=== PATIENT | female | born 1995 | race Hispanic/Latino ===

== ENCOUNTER 2016-07-09 02:08 | Emergency (ER) | payer OTHER ==
[~2016-07-09] VITALS: Ht 157.5 cm; Wt 68.2 kg
[~2016-07-09 02:08] MED LIST: HYDR25CA PO; IBUP800T28 PO; PREN-107 PO
[2016-07-09 02:10] VITALS: BP 154/100; PULSE 104; RESP 18; O2SAT 100
--- NOTE | 2016-07-09 02:24 | ED.REPORT ---
HPI-General Illness Date of Service Jul 09, 2016 ED Provider: Will Gambino MD Patient is a 20 year old female who is 3 months with a history of anxiety who presents to the ED complaining of substernal chest pain with bilateral arm tingling that began 1 hour prior to arrival, after experiencing anxiety all day today. Her tingling started in her left arm and then progressed to her right as well. Patient states that she has previously had chest pain with anxiety, but never the pain and tingling in her arms. The patient reports that her heart was also racing and that she had difficulty catching her breath. She states that her heart is not racing on arrival to the ED. The patient is unsure of what is causing her anxiety but she has a at home and is 3 months . Patient has presented to the ED due to palpitations in the past, with no acute finding on previous EKG. Patient has also seen her PCP for evaluation, stating that she was started on a medication that worsened her symptoms. She is meant to try a new medication soon. Patient admits to nausea and decreased appetite but denies a cough, vomiting, increased swelling in her legs, pain in her legs, or a history of blood clots. Nursing Notes Stated Complaint: CHEST PAIN Chief Complaint: Chest Pain-Non Cardiac Nature Nursing Notes Reviewed: Yes Allergies: Coded Allergies: Penicillins (Verified Allergy, Mild, rash, 07/09/16) Scheduled Vit37/Iron/Folic Acid (Prenata Chewable Tablet) 1 Each Tab.chew 1 EACH PO DAILY Scheduled PRN Hydroxyzine Pamoate (Vistaril) 25 Mg Capsule 25-50 MG PO HS PRN PRN For Anxiety Ibuprofen (Ibuprofen) 800 Mg Tablet 800 MG PO Q6H PRN PRN For Pain General Time Seen by MD: 02:24 Chief Complaint Other (anxiety and chest pain) Hx Obtained From: Patient Arrived By: Walk-in Sudden in Onset?: No Onset Occurred: 1 - 4 hours ago (anxiety all day, chest pain 1 hour [employer]) Symptom Duration: Since onset Location: : Chest Quality: Painful Severity: Current: Moderate Severity: Maximum: Moderate Recent Healthcare: No recent doctor visit, No recent hospitalization Similar Sx Previous: Yes Past Medical History Past Medical History Anxiety 3 months , Past Surgical History none Smoking History Never Smoker Social History Other Social History: Good social support, Lives with children, Local resident Ambulatory Status Independent Review of Systems + decreased appetite Full Review of Systems Respiratory: Reports: Shortness of breath, Denies: Non-productive cough Cardiovascular: Reports: Chest pain, Palpitations GI: Reports: Nausea, Denies: Vomiting Musculoskeletal: Denies: Extremity pain, Extremity swelling Neurologic: Reports: Numbness (tingling), Denies: Weakness Psychiatric: Reports: Anxiety Complete sys rev & neg: except as marked. Physical Exam Vital Signs Vital Signs Date Time Temp Pulse Resp B/P Pulse Ox O2 Delivery O2 Flow Rate FiO2 07/09/16 04:08 88 1 132/7 98 Room Air 07/09/16 03:12 88 16 99 07/09/16 02:10 36.7 104 18 154/100 100 Room Air Initial VS: Reviewed Head / Eyes: Atraumatic, Normocephalic, PERRL ENT: Conjunctiva normal, No scleral icterus Neck: Supple, Full range of motion Extremities: Vascular intact, Neuro intact Skin: Warm, Dry, No cyanosis Neurologic: Alert, Oriented, Nonfocal General/Constitutional: Awake, Alert Behavior: Positive: Anxious Respiratory / Chest: Breath sounds NL, Breath sounds = bilat, No respiratory distress, No rales, No rhonchi, No wheezing, No chest tenderness Cardiovascular: Regular rhythm, Heart sounds NL, No murmurs Heart Rate / Rhythm: Positive: Tachycardia Psychiatric: Cognitive function NL, Judgment/insight NL, Thought content NL Abnormal Mood/Affect: Positive: Anxious Interpretation & Diagnostics Lab Results Interpretation Result Diagram: 07/09/165 07/09/16 0315 Test 07/09/16 03:15 White Blood Count 9.5th/mm3 (3.8-10.1) Red Blood Count 4.81mil/mm3 (3.90-5.20) Hemoglobin 13.9g/dL (12.0-15.6) Hematocrit 41.4% (35.0-46.0) Mean Corpuscular Volume 86.1fL (81-100) Mean Corpuscular Hemoglobin 28.9pg (27.0-35.0) Mean Corpuscular Hemoglobin Concent 33.6% (32.0-37.0) Red Cell Distribution Width 12.4% (12.3-15.4) Platelet Count 294bil/L (150-400) Neutrophils (%) (Auto) 69.9% (40-74) Lymphocytes (%) (Auto) 21.0% (14-46) Monocytes (%) (Auto) 8.4% (4-12) Eosinophils (%) (Auto) 0.4% (0-5) Basophils (%) (Auto) 0.2% (0-3) Prothrombin Time 10.0sec (8.1-12.5) Prothromb Time International Ratio 0.94ratio Activated Partial Thromboplast Time 26.7sec (22.8-33.0) D-Dimer < 0.5mg/L (<0.50) Hold Urine Received (Received) Sodium Level 143mEq/L (134-144) Potassium Level 3.6mEq/L (3.5-5.2) Chloride Level 105mEq/L (97-108) Carbon Dioxide Level 23mmol/L (18-29) Blood Urea Nitrogen 9mg/dL (6-20) Creatinine 0.68mg/dL (0.57-1.00) Estimat Glomerular Filtration Rate 158mL/min (>59) Glucose Level 151mg/dL (60-99) Calcium Level 9.7mg/dL (8.5-10.1) Total Bilirubin 0.2mg/dL (0.0-1.2) Aspartate Amino Transf (AST/SGOT) 23U/L (0-50) Alanine Aminotransferase (ALT/SGPT) 28U/L (0-32) Alkaline Phosphatase 105U/L (25-150) Total Protein 7.9g/dL (6.4-8.4) Albumin 4.6g/dL (3.4-5.0) ECG Interpretation ECG Interpretation: Sinus rhythm, Rate 89 Nonspecific T abnormalities, Juvenile pattern Time: 02:30 Interpreted by: ED physician Normal ECG Interpretation: No change from prior ECGs (10/24/2015) Re-Eval/Medical Decision Med Decision/Clinical Course 4-year-old female three months presents with recurrent anxiety hyperventilation and chest pain. Her exam is unremarkable. Her monitor over the course of her stay here is negative for anything but sinus tachycardia sinus rhythm. Long discussion with her about depression, depression as the underlying cause of most chronic anxiety, and the need to seek treatment with her PCP. No indication for sedation at this time. She is discharged in stable condition. Source of Hx: Old records Time of Eval: 02:37 Patient Status: Condition improved Re-Evaluation/Progress Note: Discussed the patient's symptoms. Her anxiety sounds like it is consistent with depression. She was encouraged to follow-up with her doctor for depression. Will check a D-dimer prior to discharge to rule out acute process. If this is negative, she can be discharged home. Time of Eval: 03:55 Patient Status: Condition improved Re-Evaluation/Progress Note: Labs were negative, discussed diagnoses. She feels improved. Patient understands and agrees with the plan to be discharged home. Discharge instructions and follow-up discussed. All questions were addressed. Return to the ED warnings given. Counseled Regarding: Diagnosis, Lab results, Need for follow-up, When/why to return to ED Discharge & Departure Primary Impression: Anxiety Additional Impressions: Hyperventilating depression Non-cardiac chest pain Disposition: Home Discharge Condition All VS Reviewed: Yes Condition: Stable Patient Instructions: Generalized Anxiety Disorder (ED), Depression (ED) Additional Instructions: Your heart and lungs are fine. There is no evidence of significant or dangerous pathology. It is possible that you have a regular tachycardia such as PSVT. All of the beats we recorded here are normal in origin. Follow-up with your doctor in the office. If you continue to have palpitations , your doctor can arrange a Holter exam to evaluate it further. However, I think your problem is primarily depression related to your recent childbirth. This can produce generalized anxiety when the depression remains untreated. The most important thing to understand, is that sedation for the anxiety only makes matters worse. The most important thing to treat is the underlying depression. Referrals: Rosemary Nielsen MD (PCP) Inés Attestation Portions of this note were transcribed by Alyssa Baird. I, Dr. Gambino personally performed the history, physical exam and medical decision-making; I reviewed and confirmed the accuracy of the information in the transcribed note. Signed by: Inés Michael, 07/09/2016 0357 copies to: Rosemary Nielsen MD, Christopher W MD Jul 09, 2016 02:24 Alyssa Baird Jul 09, 2016 02:44
[2016-07-09] MEDS ORDERED: 0.9% Sodium Chloride 1,000 ML IV ONE (02:47)
[2016-07-09 03:12] VITALS: PULSE 88; RESP 16; O2SAT 99
[2016-07-09 03:26] LABS: BASOPHILS % (AUTO) 0.2 % (0-3); EOSINOPHILS % (AUTO) 0.4 % (0-5); MONOCYTES % (AUTO) 8.4 % (4-12); Mean Corpuscular Hemoglobin 28.9 pg (27.0-35.0); Mean Corpuscular Volume 86.1 fL (81-100); NEUTROPHILS % (AUTO) 69.9 % (40-74); Platelet Count 294 bil/L (150-400)
[2016-07-09 03:43] LABS: D-DIMER < 0.5 mg/L (<0.50); INR 0.94 ratio
[2016-07-09 04:08] VITALS: BP 132/7; PULSE 88; RESP 1; O2SAT 98
--- NOTE | 2016-07-09 07:37 | DRSVH ---
PROCEDURE: X-RAY CHEST ONE VIEW, PORTABLE ([id number]) INDICATIONS: sob, hyperventilation TECHNIQUE: One view of the chest was acquired. COMPARISON: [facility], CR, XR CHEST 1VW (PORTABLE), 04/18/2016, 0:57. FINDINGS: Surgical changes and devices: None. Lungs and pleura: No pleural effusions or pneumothorax. Lungs are clear. Mediastinum: Mediastinal contours appear normal. Heart size is normal. Bones and chest wall: No suspicious bony lesions. Overlying soft tissues appear unremarkable. IMPRESSION: No acute process. Dictated by: Tien Hernandez M.D. on 07/09/2016 at 7:34 Approved by: Tien Hernandez M.D. on 07/09/2016 at 7:34
== END 2016-07-09 04:09 | disposition home or self-care (01) ==
LOC: SED 02:48
DX: F41.9 Anxiety disorder, unspecified (principal); F53 Mental and behavioral disorders associated with the puerperium, not elsewhere classified; R06.4 Hyperventilation; R07.89 Other chest pain; Z87.898 Personal history of other specified conditions; Z88.0 Allergy status to penicillin
CPT/HCPCS: 36415; 71010; 80053; 85025; 85379; 85610; 85730; 93005; 96360; 96361; 99285; J7030

== ENCOUNTER 2016-08-30 21:49 | Emergency (ER) | payer OTHER ==
[~2016-08-30] VITALS: Ht 160 cm; Wt 70.0 kg
[2016-08-30 21:52] VITALS: BP 155/98; PULSE 102; RESP 16; O2SAT 97
--- NOTE | 2016-08-30 23:56 | ED.REPORT ---
HPI-Headache Date of Service Aug 30, 2016 ED Provider: Roberto Wayne DO A 20 year old female with a history of anxiety and no history of severe headaches presents to the ED complaining of a retrobulbar headache. The headache began yesterday and has gradually worsened since. She is now experiencing pain and tension from her forehead to her denominational. She denies vomiting or syncope. Nursing Notes Stated Complaint: HEADACHE Chief Complaint: Headache Nursing Notes Reviewed: Yes Allergies: Coded Allergies: Penicillins (Verified Allergy, Mild, rash, 08/30/16) Scheduled Vit37/Iron/Folic Acid (Prenata Chewable Tablet) 1 Each Tab.chew 1 EACH PO DAILY Scheduled PRN Hydroxyzine Pamoate (Vistaril) 25 Mg Capsule 25-50 MG PO HS PRN PRN For Anxiety Ibuprofen (Ibuprofen) 800 Mg Tablet 800 MG PO Q6H PRN PRN For Pain General Time Seen by MD: 23:56 Chief Complaint Headache Hx Obtained From: Patient Arrived By: Walk-in Sudden in Onset?: No Onset Occurred: 1 day ago Symptom Duration: Since onset Recent Healthcare: Recent doctor visit, Recent hospitalization Similar Sx Previous: No Past Medical History Past Medical History Anxiety 3 months , Past Surgical History none Smoking History Never Smoker Social History Other Social History: Good social support, Lives with children, Local resident Ambulatory Status Independent Review of Systems Constitutional: Denies: Fever GI: Denies: Abdominal pain, Vomiting Musculoskeletal: Denies: Back pain, Neck pain Skin: Denies Rash Neurologic: Reports: Headache, Denies: Syncope Complete sys rev & neg: except as marked. Physical Exam Initial Vital Signs Vital Signs (First) Date Time Temp Pulse Resp B/P Pulse Ox O2 Delivery O2 Flow Rate FiO2 08/30/16 21:52 36.0 102 16 155/98 97 Room Air Initial VS: Reviewed General/Constitutional: Awake, Alert Head / Eyes: Atraumatic, Normocephalic, PERRL, EOMI Neck: Atraumatic, Supple, Full range of motion Neurologic: Oriented X3, Speech NL, No motor deficits, No sensory deficits ENT: Atraumatic, Airway patent, Mucous membranes moist Respiratory / Chest: Atraumatic, Breath sounds NL, Breath sounds = bilat, No respiratory distress Cardiovascular: Heart rate NL, Regular rhythm, Heart sounds NL Abdomen: Atraumatic, Soft, Non-tender Skin: Atraumatic, Color NL, No rash, Warm, Dry Psychiatric: Affect NL, Mood NL Back: Atraumatic, Full range of motion Upper Extremity / MS: Atraumatic, Full range of motion Lower Extremity / Pelvis / MS: Atraumatic, Full range of motion Interpretation & Diagnostics Lab Results Interpretation Result Diagram: 08/31/1610408/31/16104 Pulse Oximetry Interpretation Pulse Oximetry Interpretation: 97% on room air Pulse Oximetry: Pulse Ox normal Pulse Oximetry Interpretation: 98% on room air Pulse Oximetry: Pulse Ox normal CT Head Interpretation CONCLUSION: Normal non-contrast CT scan of the head. Interpretation / Wet Read by: Interpret - Radiologist Re-Eval/Medical Decision Med Decision/Clinical Course Healthy 20-year-old female resents complaining of retrobulbar tension type headache. Headache started after she is placed in a new antianxiety medication. He has severe anxiety. She is quite anxious on my evaluation. Her cranial nerves are intact. Neck is supple without nuchal rigidity. With sensory testing is that she describes a fullness behind her eyes. This is a new type headache for her. We CT her brain and there is no mass. I recommended an LP to thoroughly rule out meningitis and subarachnoid hemorrhage. She declined. I think this is reasonable. I will think she had subarachnoid hemorrhage I was more concerned about a mass anyways but I did tell her that it is standard of care to have a lumbar puncture. She was certainly of sound mind and body to refuse this. Her labs are reassuring. Negative d-dimer is reassuring as far as a vascular disaster goes. She had prompt relief with the medications we gave her. Her biggest problem now is presenting very anxiety. I take a couple weeks for her medicines to buildup therapeutic drug levels so I prescribed a very short course of Xanax. I went over the warnings of Xanax including its habit-forming capabilities. She was comfortable this and she was discharged in stable condition. Source of Hx: Old records Re-Evaluation/Progress : Time of Eval: 01:58 )( Patient Status: Condition improved Re-Evaluation/Progress Note: Pt rechecked, who is resting. She is informed of her radiology results and diagnosis. The plan for discharge is discussed. The pt understands and agrees with the plan. All questions are addressed at this time. Counseled Regarding: Diagnosis, Lab results, Need for follow-up, When/why to return to ED Discharge & Departure Impression: Primary Impression: Headache Headache type: tension-type Headache chronicity pattern: acute headache Intractability: not intractable Qualified Code: G44.209 - Tension-type headache, unspecified, not intractable Additional Impression: Anxiety Disposition: Home Discharge Condition All VS Reviewed: Yes Condition: Stable Patient Instructions: Acute Headache (ED), Generalized Anxiety Disorder (ED) Additional Instructions: Rest tonight. Do not drive as you have received sedating medications. I believe that you are suffering from anxiety. Continue with your medications for this. For breakthrough anxiety symptoms you may take 1 Xanax every 8 hours as needed. Do not drive or drink alcohol or consume any sedatives will taking the Xanax. Use it sparingly as it can be habit forming. The CAT scan of your brain was normal. As we discussed a lumbar puncture is recommended to completely rule out intracranial hemorrhage. A small percentage of people can have bleeding in the brain and still have a normal CAT scan. I would like you to return if you develop a fever, thunderclap headache or any neck stiffness, vomiting or any worsening or new headache syndromes. Call your doctor tomorrow to set up a follow-up appointment. Keep your follow-up with the bss solution architect as well. It was very nice meeting you. Do not hesitate to return if you have any problems or any worsening symptoms. Referrals: Felicity Plasencia ND (PCP) Caesaribwisam Attestation Portions of this note were transcribed by Diana Cole. I, Dr. Wayne personally performed the history, physical exam and medical decision-making; I reviewed and confirmed the accuracy of the information in the transcribed note. Signed by: Inés Inman, 08/31/2016 and 0223. copies to: Felicity Plasencia ND, Todd P DO Aug 30, 2016 23:56 DIANA COLE Aug 31, 2016 00:59
[2016-08-30 23:58] VITALS: BP 146/92; PULSE 118; RESP 20; O2SAT 98
[2016-08-31] MEDS ORDERED: 0.9% Sodium Chloride 1,000 ML IV ONE (00:30)
[2016-08-31] MEDS ORDERED: Dexamethasone Inj 10 MG in 0.9% Sodium Chloride-Pha MIX 50 ML IV ONE (00:30)
[2016-08-31 01:11] LABS: BASOPHILS % (AUTO) 0.3 % (0-3); EOSINOPHILS % (AUTO) 0.7 % (0-5); MONOCYTES % (AUTO) 8.3 % (4-12); Mean Corpuscular Hemoglobin 29.3 pg (27.0-35.0); Mean Corpuscular Volume 86.2 fL (81-100); NEUTROPHILS % (AUTO) 61.9 % (40-74); Platelet Count 290 bil/L (150-400)
[2016-08-31 01:26] LABS: APPEARANCE,URINE CLEAR (CLEAR,HAZY); COLOR,URINE STRAW (YELLOW); OCCULT BLOOD,URINE TRACE (NEGATIVE); UROBILINOGEN,URINE NORMAL (NORMAL)
[2016-08-31 03:28] VITALS: BP 125/65; PULSE 92; RESP 16; O2SAT 100
--- NOTE | 2016-08-31 09:51 | DRSVH ---
PROCEDURE: CT BRAIN WITHOUT CONTRAST ([id number]) INDICATIONS: retrobulbar pain TECHNIQUE: Noncontrast 4.5 mm thick angled axial sections acquired from the foramen magnum to the vertex, with c oronal reformats. COMPARISON: None. FINDINGS: Image quality: Excellent. CSF spaces: Basal cisterns are patent. No extra-axial fluid collections. Ventricles are normal in size and shape. Brain: No midline shift. No intracranial masses or hemorrhage. Edgar-white matter interface is norm al. Skull and face: Calvarium and visualized facial bones are intact, without suspicious lesions. Sinuses: Visualized sinuses and mastoids are clear. IMPRESSION: No acute intracranial disease process. Dictated by: Lora Nicole MD, PhD on 08/31/2016 at 9:48 Approved by: Lora Nicole MD, PhD on 08/31/2016 at 9:50
== END 2016-08-31 03:31 | disposition home or self-care (01) ==
LOC: SED 21:49 → MOC 22:57 → UNDOADMIN 22:57 → SED 08-31 03:31
DX: G44.209 Tension-type headache, unspecified, not intractable (principal); F41.9 Anxiety disorder, unspecified; Z88.0 Allergy status to penicillin
CPT/HCPCS: 36415; 70450; 80053; 81000; 81025; 85025; 85379; 86140; 96361; 96374; 96375; 99285; J1100; J1200; J1885; J2060; J7030

== ENCOUNTER 2016-09-03 10:08 | Emergency (ER) | payer OTHER ==
[~2016-09-03] VITALS: Ht 160 cm; Wt 70.0 kg
[2016-09-03 10:13] VITALS: BP 145/87; PULSE 125; RESP 18; O2SAT 98
[2016-09-03] MEDS ORDERED: LORazepam 2 mg Tablet PO ONE (10:35)
--- NOTE | 2016-09-03 10:36 | ED.REPORT ---
HPI-General Illness Date of Service Sep 03, 2016 ED Provider: Angel Mitchell DO Pt is a 20 y.o. female who is 5 months with a hx of anxiety and depression who presents to the ED c/o worsening depression. She states that she was started on Lexapro 1 week ago for depression. After starting the new medication she developed worsening depression and anxiety , weakness, hot flashes, diaphoresis, insomnia, and decreased PO intake. She contacted her PCP about these sx and her PCP told her to continue the medication. She was seen in the ED on 08/30/16 for a severe headache that she believed was also related to the Lexapro, it has since resolved. The pt was recently given a prescription for Xanax to help with the side effects of her Lexapro. She claims to have taken the Xanax once and it did not alleviate her sx so she discontinued use. Pt also reports insomnia/difficulty sleeping. She claims to take Melatonin every night and additional sleep-aids as needed and she still has difficulty sleeping. She denies any current SI, HI, and hallucinations. ] She also reports a recent thyroid work-up that was normal. Nursing Notes Stated Complaint: ANXIETY/DEPRESSION,LOSS OF APPETIET Chief Complaint: General Complaint Nursing Notes Reviewed: Yes Allergies: Coded Allergies: Penicillins (Verified Allergy, Mild, rash, 08/30/16) Scheduled Vit37/Iron/Folic Acid (Prenata Chewable Tablet) 1 Each Tab.chew 1 EACH PO DAILY Scheduled PRN Hydroxyzine Pamoate (Vistaril) 25 Mg Capsule 25-50 MG PO HS PRN PRN For Anxiety Ibuprofen (Ibuprofen) 800 Mg Tablet 800 MG PO Q6H PRN PRN For Pain Lorazepam (Ativan) 1 Mg Tablet 1 MG PO TID PRN PRN For Anxiety General Time Seen by MD: 10:22 Chief Complaint Other (Depression) Hx Obtained From: Patient Arrived By: Walk-in Sudden in Onset?: Yes Onset Occurred: More than a week ago... Symptom Duration: Since onset Severity: Current: No pain currently Recent Healthcare: Recent doctor visit Past Medical History Past Medical History Anxiety 3 months , Reports: Depression Past Surgical History none Smoking History Never Smoker Social History Other Social History: Good social support, Lives with children, Local resident Ambulatory Status Independent Review of Systems Decreased PO intake Full Review of Systems Constitutional: Reports: Weakness - generalized Endocrine: Reports: Heat intolerance Skin: Reports Diaphoresis Neurologic: Denies: Headache Psychiatric: Reports: Anxiety, Depression, Insomnia, Denies: Hallucinations, auditory, Hallucinations, visual, Homicidal ideation , Suicidal ideation Complete sys rev & neg: except as marked. Physical Exam Vital Signs Vital Signs Date Time Temp Pulse Resp B/P Pulse Ox O2 Delivery O2 Flow Rate FiO2 09/03/16 11:54 37 97 18 130/64 100 Room Air 09/03/16 10:13 37 125 18 145/87 98 Room Air Initial VS: Reviewed Abdomen / GI: No distention Extremities: Vascular intact, Neuro intact Skin: Warm, Dry, No cyanosis General/Constitutional: Awake, Alert, Well appearing, Well developed, Well hydrated, Well nourished, Not toxic appearing Distress / Hydration: Positive: Distress mild Head / Eyes: Atraumatic, Normocephalic, PERRL, No nystagmus Respiratory / Chest: Atraumatic, Breath sounds NL, No respiratory distress Cardiovascular: Heart rate NL, Regular rhythm, Peripheral circulation NL Neurologic: Oriented X3, Speech NL, Reflexes equal bilat Reflex Abnormality: Negative: Clonus present Psychiatric: Affect NL, Mood NL, Not suicidal, Not homicidal, No hallucinations , Cognitive function NL Interpretation & Diagnostics 08/23/16 at [facility]: TSH...1.690 T4...1.25 Re-Eval/Medical Decision Med Decision/Clinical Course Patient presents with a long-standing history of anxiety which essentially resolved after treating with Ativan. She was tachycardic, she is on an antidepressant however she does not have clonus or nystagmus, this does not seem to be serotonin syndrome, she has had prior workups including d-dimer send TSH studies recently, these were reviewed I do not think that there is a medical cause for this however she did seem to have improvement with Ativan will be treated with Ativan when necessary. She is strongly encouraged to follow-up with her primary care tomorrow for further discussion of long-term management. Return precautions given. Source of Hx: Old records Time of Eval: 11:36 Re-Evaluation/Progress Note: Pt rechecked. Pt feels improved after the Ativan. Discussed plan for discharge, pt understands and agrees with plan. Counseled Regarding: Diagnosis, Lab results, Need for follow-up, When/why to return to ED Discharge & Departure Primary Impression: Acute situational disturbance Disposition: Home Discharge Condition All VS Reviewed: Yes Condition: Stable Additional Instructions: Use Ativan as needed for anxiety up to 3 times a day. Call your regular doctor in the morning fo rclose follow-up and recheck and further discussion. Return to the ER if you feel suicidal, homicidal, or feel like you have no other options. Also return if you feel you have any life-threatening medical emergency Referrals: Felicity Plasencia ND (PCP) Inés Attestation Portions of this note were transcribed by Claus Stanley. I, Dr. Mitchell personally performed the history, physical exam and medical decision-making; I reviewed and confirmed the accuracy of the information in the transcribed note. Signed by: Inés Molina, 09/03/16 and [id number]. copies to: Felicity Plasencia ND, Timothy S DO Sep 03, 2016 10:36 CLAUS STANLEY Sep 03, 2016 10:39
[2016-09-03] MEDS ORDERED: LORA-303 PO (11:37)
[2016-09-03 11:54] VITALS: BP 130/64; PULSE 97; RESP 18; O2SAT 100
== END 2016-09-03 11:54 | disposition home or self-care (01) ==
LOC: SED 10:08
DX: F43.0 Acute stress reaction (principal); F41.9 Anxiety disorder, unspecified; F53 Mental and behavioral disorders associated with the puerperium, not elsewhere classified; Z88.0 Allergy status to penicillin

== ENCOUNTER 2016-09-07 21:04 | Emergency (ER) | payer OTHER ==
[~2016-09-07] VITALS: Ht 160 cm; Wt 70.0 kg
[~2016-09-07 21:04] MED LIST changes: +LORA-303 PO
[2016-09-07 21:27] VITALS: BP 151/97; PULSE 123; RESP 24; O2SAT 99
--- NOTE | 2016-09-07 22:06 | ED.REPORT ---
HPI-General Illness Date of Service Sep 07, 2016 ED Provider: Will Gambino MD 21 year old female with a history of anxiety and depression presents to the ER accompanied by a female friend complaining of two weeks of nausea and vomiting that seems to be correlated with starting her new anxiety/depression medication , Lexapro. She also reports insomnia related to symptoms, exacerbated by her underlying anxiety. Patient denies any suicidal ideation, fever, and diarrhea. Nursing Notes Stated Complaint: ANXIETY,DEPRESSION Chief Complaint: General Complaint Nursing Notes Reviewed: Yes Allergies: Coded Allergies: Penicillins (Verified Allergy, Mild, rash, 09/07/16) Scheduled Vit37/Iron/Folic Acid (Prenata Chewable Tablet) 1 Each Tab.chew 1 EACH PO DAILY Scheduled PRN Hydroxyzine Pamoate (Vistaril) 25 Mg Capsule 25-50 MG PO HS PRN PRN For Anxiety Hydroxyzine Pamoate (Vistaril) 50 Mg Capsule 50 MG PO HS PRN PRN For Insomnia Ibuprofen (Ibuprofen) 800 Mg Tablet 800 MG PO Q6H PRN PRN For Pain Lorazepam (Ativan) 1 Mg Tablet 1 MG PO TID PRN PRN For Anxiety Ondansetron (Ondansetron) 4 Mg Tablet 4 MG PO QID PRN PRN For Nausea General Time Seen by MD: 22:06 Chief Complaint Vomiting Hx Obtained From: Patient Arrived By: Walk-in Sudden in Onset?: No Onset Occurred: More than a week ago... (2 weeks) Context of Onset: Medication reaction Symptom Duration: 46 - 59 minutes Associated with: Reports: Nausea, Denies: Abdominal pain, Fever Pertinent Negative: Pt denies other symptoms Similar Sx Previous: No Past Medical History Past Medical History Anxiety 3 months , Reports: Depression Past Surgical History none Smoking History Never Smoker Social History Other Social History: Good social support, Lives with children, Local resident Ambulatory Status Independent Review of Systems Full Review of Systems Constitutional: Denies: Chills, Fever GI: Reports: Nausea, Vomiting, Denies: Abdominal pain, Diarrhea Psychiatric: Reports: Anxiety, Depression, Insomnia, Denies: Homicidal ideation, Suicidal ideation Complete sys rev & neg: except as marked. Physical Exam Vital Signs Vital Signs Date Time Temp Pulse Resp B/P Pulse Ox O2 Delivery O2 Flow Rate FiO2 09/07/16 23:01 36.7 78 14 118/74 97 Room Air 09/07/16 21:27 37.4 123 24 151/97 99 Room Air Initial VS: Reviewed Head / Eyes: Atraumatic, Normocephalic Neck: Supple, Non-tender, Full range of motion Abdomen / GI: Soft, Non-tender, No guarding, No rebound, No distention Extremities: Vascular intact, Neuro intact, No swelling, No tenderness Skin: Warm, Dry, No cyanosis Neurologic: Alert, Oriented, Nonfocal General/Constitutional: Awake, Alert, Well developed, Well nourished Psychiatric: Affect NL, Mood NL, Not suicidal, Not homicidal, No hallucinations , Cognitive function NL, Judgment/insight NL, Thought content NL Re-Eval/Medical Decision Med Decision/Clinical Course 21-year-old female with nausea since starting Lexapro. She is mildly anxious and jittery with it. Advised to discontinue this point and provided with Zofran. No suicidality at present. Follow-up with prescribing physician at her counseling service. Follow-up with PCP also. Discharged in stable condition. Time of Eval: 22:15 Re-Evaluation/Progress Note: Discussed plan to discharge. Patient is amenable to the plan. Return precautions given. All other questions addressed. Counseled Regarding: Diagnosis, Need for follow-up, When/why to return to ED Discharge & Departure Primary Impression: Nausea & vomiting Additional Impressions: Adverse effects of medication Depression Disposition: Home Discharge Condition All VS Reviewed: Yes Condition: Stable Additional Instructions: Stop your Lexapro. See your doctor about a replacement. You may use Vistaril at night if needed for sleep. The Lexapro should wear off over the next couple of days, and her sleep pattern should improve. Zofran up to four times daily if needed for nausea. Return if he developed fever, diarrhea, or other new symptoms of concern. Return also if you have any uncontrolled feelings of self-harm or feel unsafe. Call your doctor tomorrow for follow-up at your mutual earliest convenience. Referrals: Felicity Plasencia ND (PCP) Scribe Attestation Portions of this note were transcribed by Alona Goins. I, Dr. Gambino, personally performed the history, physical exam and medical decision-making; I reviewed and confirmed the accuracy of the information in the transcribed note. Signed by: Inés Matthews. 09/07/2016 - 22:40 copies to: Felicity Plasencia ND, Christopher W MD Sep 07, 2016 22:06 ALONA GOINS Sep 07, 2016 22:12
[2016-09-07] MEDS ORDERED: _Ondansetron ODT 4 mg Tablet PO PRN (22:30)
[2016-09-07] MEDS ORDERED: hydrOXYzine Pamoate 25 mg Capsule PO ONE (22:30)
[2016-09-07] MEDS ORDERED: HYDR50CA PO (22:39)
[2016-09-07] MEDS ORDERED: ONDA-53 PO (22:39)
[2016-09-07 23:01] VITALS: BP 118/74; PULSE 78; RESP 14; O2SAT 97
== END 2016-09-07 23:06 | disposition home or self-care (01) ==
LOC: SED 21:04
DX: R11.2 Nausea with vomiting, unspecified (principal); T43.225A Adverse effect of selective serotonin reuptake inhibitors, initial encounter; F33.9 Major depressive disorder, recurrent, unspecified; Z88.0 Allergy status to penicillin
CPT/HCPCS: 99283; Q0177

== ENCOUNTER 2016-09-17 23:00 | Emergency (ER) | payer OTHER ==
[~2016-09-17] VITALS: Ht 160 cm; Wt 70.0 kg
[~2016-09-17 23:00] MED LIST changes: +HYDR50CA PO; +ONDA-53 PO
[2016-09-17 23:03] VITALS: BP 157/114; PULSE 125; RESP 16; O2SAT 99
--- NOTE | 2016-09-18 01:18 | ED.REPORT ---
HPI-General Illness Date of Service Sep 18, 2016 ED Provider: Kevin Jones MD Patient is a 21 year old female with a history of anxiety and depression who presents to the ED complaining of insomnia for the past 6 days. She states that she has been able to fall asleep but wakes up a hour later from "weird, nightmare" dreams. She states that her nightmares are about her young child suffocating or that people are chasing her in an attempt to harm her. She is then unable to fall back asleep. Patient reports feeling "loopy" and having difficulty concentrating during the day. Her primary care physician recently prescribed her Lexapro for anxiety, which only worsened her anxiety. Before stopping this medication she then developed insomnia. She was prescribed melatonin and Vistaril (50mg) for her insomnia, which she had been taking before bed. The patient reports that she has not taken the Vistaril for the past 2 nights, in order to see if this was contributing to her symptoms. The patient has one young baby at home and is not currently . She denies a history of PTSD. She is not currently on any antibiotics. Nursing Notes Stated Complaint: FATIGUE, SLEEPLESSNESS Chief Complaint: General Complaint Nursing Notes Reviewed: Yes Allergies: Coded Allergies: Penicillins (Verified Allergy, Mild, rash, 09/07/16) Scheduled Prazosin (Minipress) 1 Mg Capsule 1 MG PO HS Vit37/Iron/Folic Acid (Prenata Chewable Tablet) 1 Each Tab.chew 1 EACH PO DAILY Scheduled PRN Hydroxyzine Pamoate (Vistaril) 25 Mg Capsule 25-50 MG PO HS PRN PRN For Anxiety Hydroxyzine Pamoate (Vistaril) 50 Mg Capsule 50 MG PO HS PRN PRN For Insomnia Ibuprofen (Ibuprofen) 800 Mg Tablet 800 MG PO Q6H PRN PRN For Pain Lorazepam (Ativan) 1 Mg Tablet 1 MG PO TID PRN PRN For Anxiety Ondansetron (Ondansetron) 4 Mg Tablet 4 MG PO QID PRN PRN For Nausea General Time Seen by : 01:00 Chief Complaint Other (insomnia) Hx Obtained From: Patient Arrived By: Walk-in Sudden in Onset?: No Onset Occurred: 3 days ago Symptom Duration: Since onset Severity: Current: No pain currently Severity: Maximum: No pain Recent Healthcare: Recent doctor visit Similar Sx Previous: Yes Past Medical History Past Medical History Anxiety 3 months , Reports: Depression Past Surgical History none Smoking History Never Smoker Social History Other Social History: Good social support, Lives with children, Local resident Ambulatory Status Independent Review of Systems Full Review of Systems Constitutional: Denies: Chills, Fever Psychiatric: Reports: Anxiety, Insomnia Complete sys rev & neg: except as marked. Physical Exam Vital Signs Vital Signs Date Time Temp Pulse Resp B/P Pulse Ox O2 Delivery O2 Flow Rate FiO2 09/17/16 23:03 37.4 125 16 157/114 99 Room Air Initial VS: Reviewed, Vital signs abnormal General/Constitutional: Awake, Alert, No acute distress, Well hydrated Head / Eyes: Atraumatic, Normocephalic, PERRL, EOMI ENT: Airway patent, Mucous membranes moist Neck: Supple, Full range of motion Respiratory / Chest: Breath sounds NL, Breath sounds = bilat, No respiratory distress, No rales, No rhonchi, No wheezing Cardiovascular: Heart rate NL, Regular rhythm, Heart sounds NL, No murmurs Skin: Color NL, Warm, Dry Neurologic: Oriented X3, Speech NL, No motor deficits, No sensory deficits Psychiatric: Affect NL, Mood NL, Not suicidal Re-Eval/Medical Decision Med Decision/Clinical Course 21-year-old female with insomnia and bad nightmares. She has been using hydroxyzine to help fall asleep but she does not stay asleep because the nightmares. We will try prazosin, #1 given on discharge here and a prescription written for 10. She will follow-up with her regular doctor after this trial. Source of Hx: Old records Time of Eval: 01:10 Patient Status: Condition improved Re-Evaluation/Progress Note: Discussed plan for treatment and discharge. The patient understands and agrees to the plan for discharge. All questions were addressed. Return to the ED warnings given. Counseled Regarding: Diagnosis, Need for follow-up, When/why to return to ED Discharge & Departure Primary Impression: Insomnia Insomnia type: unspecified Qualified Code: G47.00 - Insomnia, unspecified Additional Impression: Nightmares Disposition: Home Discharge Condition All VS Reviewed: Yes Condition: Stable Additional Instructions: Prazosin 1 mg at bedtime may help you stay asleep by suppressing the nightmares. Continue to use the hydroxyzine (Vistaril) to help you get to sleep. Talk to your doctor for refills if you find an effective combination. Call me at [phone] between the hours of 9 PM and 6 AM for the next couple nights if you have any questions or concerns. Referrals: Felicity Plasencia ND (PCP) Scribe Attestation Portions of this note were transcribed by Amanda Gandhi and Alyssa Baird. I, Dr. Jones personally performed the history, physical exam and medical decision-making; I reviewed and confirmed the accuracy of the information in the transcribed note. Signed by: Amanda Gandhi and Alyssa Baird, [place], and [id number]. copies to: Felicity Plasencia ND, Howard L MD Sep 18, 2016 01:18 Andra Gandhi Sep 18, 2016 01:21 Alyssa Baird Sep 18, 2016 03:12
[2016-09-18] MEDS ORDERED: PRAZ1CAP PO (01:26)
== END 2016-09-18 01:50 | disposition home or self-care (01) ==
LOC: SED 23:00
DX: G47.00 Insomnia, unspecified (principal); F51.5 Nightmare disorder; Z88.0 Allergy status to penicillin

== ENCOUNTER 2016-09-27 14:15 | Emergency (ER) | payer OTHER ==
[~2016-09-27] VITALS: Ht 160 cm; Wt 70.0 kg
[~2016-09-27 14:15] MED LIST changes: +PRAZ1CAP PO
[2016-09-27 14:22] VITALS: BP 139/101; PULSE 122; RESP 18; O2SAT 98
--- NOTE | 2016-09-27 15:35 | ED.REPORT ---
HPI-Dental/Mouth Prob Date of Service Sep 27, 2016 ED Provider: Dr. Mitchell 21 y/o female with hx of anxiety presents to the ED complaining of right jaw swelling, onset yesterday. Pt got her lower wisdom teeth pulled yesterday due to infection. Since then the swelling has been constant and worsening. She visited her dentist, who advised her to come in the ED. She denies pain or tenderness under her chin. Pt has been taking Vicodin for pain. Nursing Notes Stated Complaint: WISDOM TOOTH EXTRACTION PAIN Chief Complaint: Dental Nursing Notes Reviewed: Yes Allergies: Coded Allergies: Penicillins (Verified Allergy, Mild, rash, 09/07/16) Scheduled Cefuroxime Axetil (Cefuroxime) 500 Mg Tablet 500 MG PO BID Clindamycin (Clindamycin) 150 Mg Capsule 150 MG PO QID Scheduled PRN Hydrocodone-Acetaminophen 5-325 mg (Hydrocodone-Acetaminophen 5-325 mg) 1 Each Tablet 1 TABLET PO Q4H PRN PRN For Pain Hydroxyzine Pamoate (Vistaril) 25 Mg Capsule 25-50 MG PO HS PRN PRN For Anxiety General Time Seen by MD: 15:35 Chief Complaint Jaw swelling Hx Obtained From: Patient Arrived By: Walk-in Onset Occurred: Yesterday Symptom Duration: Since onset Quality: Painful Radiation: : Does not radiate Severity: Current: Mild Severity: Maximum: Mild Recent Healthcare: Recent doctor visit Past Medical History Past Medical History Anxiety 3 months , Reports: Depression Past Surgical History [place] teeth extraction Smoking History Never Smoker Social History Other Social History: Good social support, Lives with children, Local resident Ambulatory Status Independent Review of Systems Constitutional: Denies: Fever Ears / Nose / Throat: Reports: Mouth pain, Denies: Tongue swelling Respiratory: Denies: Shortness of breath Complete sys rev & neg: except as marked. Skin: Reports Swelling Physical Exam Initial Vital Signs Vital Signs (First) Date Time Temp Pulse Resp B/P Pulse Ox O2 Delivery O2 Flow Rate FiO2 09/27/16 14:22 36.6 122 18 139/101 98 Room Air Initial VS: Reviewed, Vital signs normal General/Constitutional: Well-developed, Well-nourished Head / Eyes: Atraumatic, Normocephalic, PERRL Respiratory: No respiratory distress Skin: Warm, Dry, No cyanosis Neurologic: Alert, Oriented, Nonfocal Psychiatric: Mood/affect normal, Behavior normal, Normal thought content ENT: Atraumatic, Mucous membranes moist (and pink) Tooth 32 missing. Right jaw swelling. No fluctuance. No swelling at the base of tongue. No submental swelling or cellulitis. Neck: Atraumatic, Supple, Full range of motion, No swelling, Non-tender General/Constitutional: Awake, Alert, Well hydrated Neurologic: Speech NL, No motor deficits, No sensory deficits Upper Extremity / MS: Atraumatic, Full range of motion Lower Extremity / Pelvis / MS: Atraumatic, Full range of motion Interpretation & Diagnostics Interpretation & Diagnostics: CT Face no contrast: IMPRESSION: 1. Inflammation and soft tissue gas involving the right facial soft tissues adjacent to the body of the right mandible most compatible with infectious cellulitis. 2. No abscess identified. Dictated by: Lora Nicole MD, PhD on 09/27/2016 at 16:55 Lab Results Interpretation Result Diagram: 09/27/16 1550 09/27/16 1550 Test 09/27/16 15:50 White Blood Count 10.0th/mm3 (3.8-10.1) Red Blood Count 5.17mil/mm3 (3.90-5.20) Hemoglobin 15.1g/dL (12.0-15.6) Hematocrit 45.3% (35.0-46.0) Mean Corpuscular Volume 87.6fL (81-100) Mean Corpuscular Hemoglobin 29.2pg (27.0-35.0) Mean Corpuscular Hemoglobin Concent 33.3% (32.0-37.0) Red Cell Distribution Width 13.1% (12.3-15.4) Platelet Count 325bil/L (150-400) Neutrophils (%) (Auto) 74.9% (40-74) Lymphocytes (%) (Auto) 15.4% (14-46) Monocytes (%) (Auto) 9.1% (4-12) Eosinophils (%) (Auto) 0.2% (0-5) Basophils (%) (Auto) 0.2% (0-3) Sodium Level 140mEq/L (134-144) Potassium Level 4.2mEq/L (3.5-5.2) Chloride Level 101mEq/L (97-108) Carbon Dioxide Level 23mmol/L (18-29) Blood Urea Nitrogen 6mg/dL (6-20) Creatinine 0.64mg/dL (0.57-1.00) Estimat Glomerular Filtration Rate 168mL/min (>59) Glucose Level 109mg/dL (60-99) Calcium Level 10.3mg/dL (8.5-10.1) Hold Estrada Top Tube Received (Received) Re-Eval/Medical Decision Med Decision/Clinical Course No obvious abscess vital signs stable, do not suspect life-threatening infection at this point I think that she needs more antibiotic therapy. Recommend continuing clindamycin adding cefuroxime. Will follow up or return to the ER if worse. Source of Hx: Old records Re-Evaluation/Progress : Time of Eval: 17:18 Re-Evaluation/Progress Note: Updated pt of imaging results. Discussed plan for discharge and follow up. All questions addressed. Counseled Regarding: Diagnosis, Need for follow-up, When/why to return to ED Discharge & Departure Primary Impression: Jaw pain Disposition: Home Discharge Condition All VS Reviewed: Yes Condition: Stable Additional Instructions: Continue to take the Clindamycin. Also take Cefuroxime as directed. Follow up with your dentist in a few days. Return to the ER for difficulty breathing or any other concerning symptoms. Referrals: Felicity Plasencia ND (PCP) Scribe Attestation Portions of this note were transcribed by Jabier Henderson and Linda Zaragoza. I, personally performed the history, physical exam and medical decision-making;I reviewed and confirmed the accuracy of the information in the transcribed note. Signed by Jabier Henderson and Inés Archer. 09/25/16 1710 copies to: Felicity Plasencia ND, Timothy S DO Sep 27, 2016 15:35 Jabier Henderson Sep 27, 2016 15:43 Linda Zaragoza Sep 27, 2016 17:06
[2016-09-27] MEDS ORDERED: HYDR-4003 PO (15:36)
[2016-09-27] MEDS ORDERED: CLIN-77 PO (15:36)
[2016-09-27] MEDS ORDERED: 0.9% Sodium Chloride 1,000 ML IV ONE (15:45)
[2016-09-27 16:11] LABS: BASOPHILS % (AUTO) 0.2 % (0-3); EOSINOPHILS % (AUTO) 0.2 % (0-5); MONOCYTES % (AUTO) 9.1 % (4-12); Mean Corpuscular Hemoglobin 29.2 pg (27.0-35.0); Mean Corpuscular Volume 87.6 fL (81-100); NEUTROPHILS % (AUTO) 74.9 % (40-74); Platelet Count 325 bil/L (150-400)
--- NOTE | 2016-09-27 17:05 | DRSVH ---
PROCEDURE: CT FACE WITH CONTRAST ([id number]) INDICATIONS: Facial swelling TECHNIQUE: After the administration of intravenous contrast, 3.0 mm axial sections acquired from the mid-neck to the frontal sinuses, with coronal reformatting. For radiation dose reduction, the following was use d: automated exposure control. COMPARISON: None. FINDINGS: Image quality: Excellent. Soft tissues: Soft tissue stranding noted in the right facial soft tissues adjacent to the right body of the mandible. Small locules of air are noted in the soft tissues adjacent to the anterior right m andibular body. No abscess is identified. No enlarged lymph nodes. Vascular: Visualized vascular structures appear patent throughout. Bony vascular foramina and canal s appear normal. Bones: Small fracture of the right third lower molar lingual alveolar ridge is noted. Fracture of the left third lower molar lingual alveolar ridge is noted. Visualized portions of the skull base and au ditory canals also appear normal. The mandibular third molars are absent bilaterally and there is air within the mandibular third molar alveoli; please correlate with dental history. The maxillary third molars are impacted bilaterally. Sinuses: Paranasal sinuses are aerated without fluid levels, mucosal thickening, or mucoceles. Mast oid air cells are aerated. IMPRESSION: 1. Inflammation and soft tissue gas involving the right facial soft tissues adjacent to the body of t he right mandible most compatible with infectious cellulitis. 2. No abscess identified. Dictated by: Lora Nicole MD, PhD on 09/27/2016 at 16:55 Approved by: Lora Nicole MD, PhD on 09/27/2016 at 17:03
[2016-09-27] MEDS ORDERED: CEFU500T61 PO (17:18)
[2016-09-27] MEDS ORDERED: Cefuroxime Inj 1,500 MG in Dextrose 5% 100 ML IV ONE (17:20)
[2016-09-27 18:30] VITALS: BP 130/90; PULSE 104; RESP 15; O2SAT 100
== END 2016-09-27 18:26 | disposition home or self-care (01) ==
LOC: SED 14:15
DX: R68.84 Jaw pain (principal); Z98.818 Other dental procedure status; Z88.0 Allergy status to penicillin
CPT/HCPCS: 36415; 70487; 80048; 85025; 90791; 96361; 96365; 96375; 99285; J0697; J1885; J7030; Q9967

== ENCOUNTER 2016-10-24 02:34 | Emergency (ER) | payer OTHER ==
[~2016-10-24] VITALS: Ht 160 cm; Wt 70.5 kg
[~2016-10-24 02:34] MED LIST changes: +CEFU500T61 PO; +CLIN-77 PO; +HYDR-4003 PO; -HYDR50CA PO; -IBUP800T28 PO; -LORA-303 PO; -ONDA-53 PO; -PRAZ1CAP PO; -PREN-107 PO
[2016-10-24 02:41] VITALS: BP 131/90; PULSE 106; RESP 16; O2SAT 99
--- NOTE | 2016-10-24 02:56 | ED.REPORT ---
HPI-Chest Pain Under 40 Date of Service October 24, 2016 ED Provider: Kevin Jones MD A 21 year old female with a history of anxiety and depression presents to the ED with left-sided chest pain onset one hour prior to arrival. The patient also reports left arm pain and insomnia. She denies other symptoms. The patient had similar symptoms four days ago, preceded by a "panic attack," and she was subsequently evaluated at [facility]. Her troponin and sed rate were elevated at that time but her echocardiogram was normal. Nursing Notes Stated Complaint: LEFT ARM DISCOMFORT,CHEST PAIN Chief Complaint: Chest Pain Nursing Notes Reviewed: Yes Allergies: Coded Allergies: Penicillins (Verified Allergy, Mild, rash, 09/07/16) Scheduled Cefuroxime Axetil (Cefuroxime) 500 Mg Tablet 500 MG PO BID Clindamycin (Clindamycin) 150 Mg Capsule 150 MG PO QID Scheduled PRN Hydrocodone-Acetaminophen 5-325 mg (Hydrocodone-Acetaminophen 5-325 mg) 1 Each Tablet 1 TABLET PO Q4H PRN PRN For Pain Hydroxyzine Pamoate (Vistaril) 25 Mg Capsule 25-50 MG PO HS PRN PRN For Anxiety General Time Seen by MD: 02:55 Chief Complaint Chest pain Hx Obtained From: Patient Arrived By: Walk-in Sudden in Onset?: No Onset Occurred: 1 - 4 hours ago Symptom Duration: Since onset Location: : Chest left Quality: Painful Radiation: : Arm left Severity: Current: Moderate Severity: Maximum: Moderate Pertinent Negative: Relieved by nothing Context Related History: Reports: Anxiety disorder Recent Healthcare: Recent doctor visit Similar Sx Previous: Yes Past Medical History Past Medical History Anxiety Reports: Depression Past Surgical History [place] teeth extraction Family History No premature or early heart disease or . Mother has hypertension. There is a first cousin with Tnwxi-Uswaexyuo-Injwt syndrome. Smoking History Never Smoker Social History Other Social History: Good social support, Lives with children, Local resident Ambulatory Status Independent Review of Systems Constitutional: Denies: Fever Respiratory: Denies: Non-productive cough, Shortness of breath Cardiovascular: Reports: Chest pain (Left-sided) GI: Denies: Diarrhea, Vomiting Musculoskeletal: Reports: Extremity pain (Left arm) Psychiatric: Reports: Insomnia Complete sys rev & neg: except as marked. Physical Exam Initial Vital Signs Vital Signs (First) Date Time Temp Pulse Resp B/P Pulse Ox O2 Delivery O2 Flow Rate FiO2 5/16/17 02:41 36.6 106 16 131/90 99 Room Air Initial VS: Reviewed, Vital signs abnormal Head / Eyes: Atraumatic, Normocephalic ENT: Conjunctiva normal, No scleral icterus Neck: Supple, Full range of motion Skin: Warm, Dry, No cyanosis Neurologic: Alert, Oriented, Nonfocal Psychiatric: Mood/affect normal, Behavior normal, Normal thought content General/Constitutional: Awake, Alert Respiratory / Chest: Breath sounds NL, Breath sounds = bilat, No respiratory distress Cardiovascular: Heart rate NL, Regular rhythm, Heart sounds NL Interpretation & Diagnostics Lab Results Interpretation Result Diagram: 10/24/16 0320 10/24/16 0320 Test 10/24/16 03:20 White Blood Count 6.7th/mm3 (3.8-10.1) Red Blood Count 4.79mil/mm3 (3.90-5.20) Hemoglobin 14.1g/dL (12.0-15.6) Hematocrit 41.3% (35.0-46.0) Mean Corpuscular Volume 86.2fL (81-100) Mean Corpuscular Hemoglobin 29.4pg (27.0-35.0) Mean Corpuscular Hemoglobin Concent 34.1% (32.0-37.0) Red Cell Distribution Width 12.4% (12.3-15.4) Platelet Count 269bil/L (150-400) Neutrophils (%) (Auto) 56.4% (40-74) Lymphocytes (%) (Auto) 30.9% (14-46) Monocytes (%) (Auto) 10.6% (4-12) Eosinophils (%) (Auto) 1.5% (0-5) Basophils (%) (Auto) 0.6% (0-3) Erythrocyte Sedimentation Rate 36mm/hr (0-32) Sodium Level 140mEq/L (134-144) Potassium Level 3.7mEq/L (3.5-5.2) Chloride Level 105mEq/L (97-108) Carbon Dioxide Level 20mmol/L (18-29) Blood Urea Nitrogen 11mg/dL (6-20) Creatinine 0.70mg/dL (0.57-1.00) Estimat Glomerular Filtration Rate 151mL/min (>59) Glucose Level 129mg/dL (60-99) Calcium Level 9.2mg/dL (8.5-10.1) Magnesium Level 2.1mg/dL (1.6-2.6) Total Bilirubin 0.2mg/dL (0.0-1.2) Aspartate Amino Transf (AST/SGOT) 23U/L (0-50) Alanine Aminotransferase (ALT/SGPT) 30U/L (0-32) Alkaline Phosphatase 95U/L (25-150) Troponin T 0.010ug/L (0.0-0.011) Total Protein 7.6g/dL (6.4-8.4) Albumin 4.2g/dL (3.4-5.0) Hold Estrada Top Tube Received (Received) Lab values outside NL range: no clinical significance. Lab Results Interpretation: Troponin negative. ESR is still a little elevated, consistent with previous value. ECG Interpretation ECG Interpretation: Sinus rhythm rate 96 Time: 02:59 Interpreted by: ED physician X-Ray Chest Interpretation Chest Xray Interpretation: Normal chest View: Portable, 1 view Interpretation / Wet Read by: Wet read ED physician Re-Eval/Medical Decision Med Decision/Clinical Course 21-year-old female who was seen at [facility] [place] with transfer to [facility] several days ago. She presented with discomfort. EKG which originally was read with QT prolongation but this was not confirmed on the second EKG. sedimentation rate was elevated at 35. She had a echocardiogram which was essentially normal read no explanation was found for her pain and presentation. She now presents similarly. EKG is unremarkable with no QT prolongation. Repeat troponin is negative. A repeat sedimentation rate is 36, unchanged. She will be discharged home with ibuprofen and plan to see her primary doctor in 2 days and her carburetor specialist in 6 days. Source of Hx: Old records Re-Evaluation/Progress #1: Time of Eval: 04:14 Patient Status: Condition improved Re-Evaluation/Progress Note: Patient rechecked. Re-Evaluation/Progress #2: Time of Eval: 05:08 Patient Status: Condition improved Re-Evaluation/Progress Note: Discussed with patient x-ray and lab results, diagnosis, and plan for discharge. Follow-up and return to the ER instructions given. Patient agrees with plan for care and all questions were addressed. Counseled Regarding: Diagnosis, Lab results, Need for follow-up, When/why to return to ED Discharge & Departure Primary Impression: Chest pain with low risk for cardiac etiology Additional Impression: Anxiety Disposition: Home Discharge Condition All VS Reviewed: Yes Condition: Improved Patient Instructions: Chest Pain (ED) Additional Instructions: With the normal testing that was done here in the emergency room and at [facility], it would be unlikely that you have significant heart disease. The sedimentation rate is elevated, a nonspecific marker of inflammation. The source of this is not clear at this point but does not appear to be serious. Recommend ibuprofen 400-600 mg 3 times a day, to be purchased [id number]. Follow-up with your regular doctor as planned Sunday and your carburetor specialist as planned next Sunday. Contact me at [phone] between the hours of 9 PM and 6 AM for the next 2 nights if you have any questions or concerns. Return if you developed new or serious symptoms. Referrals: Felicity Plasencia ND (PCP) [place] Attestation Portions of this note were transcribed by Anusha uHtson. I, Dr. Jones, personally performed the history, physical exam, and medical decision-making; I reviewed and confirmed the accuracy of the information in the transcribed note. Signed by: Inés Rich, 10/24/2016, 05:35 copies to: Felicity Plasencia ND, Howard L MD October 24, 2016 02:56 ANUSHA HUTSON October 24, 2016 03:05
[2016-10-24 03:38] LABS: BASOPHILS % (AUTO) 0.6 % (0-3); EOSINOPHILS % (AUTO) 1.5 % (0-5); MONOCYTES % (AUTO) 10.6 % (4-12); Mean Corpuscular Hemoglobin 29.4 pg (27.0-35.0); Mean Corpuscular Volume 86.2 fL (81-100); NEUTROPHILS % (AUTO) 56.4 % (40-74); Platelet Count 269 bil/L (150-400)
[2016-10-24 04:24] LABS: Magnesium 2.1 mg/dL (1.6-2.6); TROPONIN T 0.01 ug/L (0.0-0.011)
[2016-10-24 05:50] VITALS: BP 130/91; PULSE 105; RESP 16; O2SAT 96
--- NOTE | 2016-10-24 08:52 | DRSVH ---
PROCEDURE: X-RAY CHEST ONE VIEW, PORTABLE ([id number]) INDICATIONS: chest pain TECHNIQUE: One view of the chest was acquired. COMPARISON: [facility], CR, XR CHEST 1VW (PORTABLE), 07/09/2016, 2:48. FINDINGS: Surgical changes and devices: None. Lungs and pleura: No pleural effusions or pneumothorax. Lungs are clear. Mediastinum: Mediastinal contours appear normal. Heart size is normal. Bones and chest wall: No suspicious bony lesions. Overlying soft tissues appear unremarkable. IMPRESSION: No acute cardiopulmonary disease. Dictated by: Christiano Medina [facility] Interpreted: Lora Nicole MD on 10/24/2016 at 8:51 Transcribed by: JOSE G on 10/24/2016 at 8:51 Approved by: Lora Nicole MD, PhD on 10/24/2016 at 9:20
== END 2016-10-24 05:11 | disposition home or self-care (01) ==
LOC: SED 02:34
DX: R07.9 Chest pain, unspecified (principal); F41.9 Anxiety disorder, unspecified; Z88.0 Allergy status to penicillin

== ENCOUNTER 2016-10-28 21:14 | Emergency (ER) | payer OTHER ==
[~2016-10-28] VITALS: Ht 160 cm; Wt 70.5 kg
[2016-10-28 21:17] VITALS: BP 136/90; PULSE 110; RESP 16; O2SAT 98
--- NOTE | 2016-10-28 23:40 | ED.REPORT ---
HPI-General Illness Date of Service October 28, 2016 ED Provider: Dr. Gambino Pt is a healthy 21 year old female who presents to the ED with concerns for sharp chest pains, fatigue and muscle weakness. She reports that she was recently diagnosed with "inflammation around her heart". She describes her chest pain as intermittent sharp pains, she denies any changes with this pain with laying flat or deep breathing. Pt reports mild nausea, but denies any vomiting, headaches, shortness of breath, cough, or any other symptoms. Nursing Notes Stated Complaint: CP,FATIGUE,NAUSEA,WEAKNESS Chief Complaint: General Complaint Nursing Notes Reviewed: Yes Allergies: Coded Allergies: Penicillins (Verified Allergy, Mild, rash, 09/07/16) Scheduled Cefuroxime Axetil (Cefuroxime) 500 Mg Tablet 500 MG PO BID Clindamycin (Clindamycin) 150 Mg Capsule 150 MG PO QID Famotidine (Pepcid) 20 Mg Tablet 20 MG PO BID Scheduled PRN Hydrocodone-Acetaminophen 5-325 mg (Hydrocodone-Acetaminophen 5-325 mg) 1 Each Tablet 1 TABLET PO Q4H PRN PRN For Pain Hydroxyzine Pamoate (Vistaril) 25 Mg Capsule 25-50 MG PO HS PRN PRN For Anxiety Naproxen (Naprosyn) 500 Mg Tablet 500 MG PO BID PRN PRN For Pain Ondansetron ODT (Ondansetron ODT) 8 Mg Tab.rapdis 8 MG PO QID PRN PRN For Nausea General Time Seen by MD: 23:39 Chief Complaint Chest pain Hx Obtained From: Patient Arrived By: Walk-in Sudden in Onset?: Yes Onset Occurred: 5 - 8 hours ago Symptom Duration: Intermittent Location: : Chest Quality: Painful Severity: Current: No pain currently Severity: Maximum: Moderate Similar Sx Previous: Yes Past Medical History Past Medical History Anxiety Reports: Depression Past Surgical History [place] teeth extraction Family History No premature or early heart disease or . Mother has hypertension. There is a first cousin with Mxhef-Qifdnndot-Dhjzr syndrome. Smoking History Never Smoker Social History Other Social History: Good social support, Lives with children, Local resident Ambulatory Status Independent Review of Systems Full Review of Systems Constitutional: Denies: Chills, Fever, Malaise, Weakness - generalized Respiratory: Denies: Non-productive cough, Shortness of breath, Wheezing Cardiovascular: Reports: Chest pain, Denies: Syncope GI: Reports: Nausea, Denies: Abdominal pain, Constipation, Diarrhea, Vomiting Female: Denies: Dysuria Musculoskeletal: Denies: Back pain, Neck pain Skin: Denies Diaphoresis Neurologic: Reports: Weakness, Denies: Change LOC, Dizziness, Headache, Syncope Complete sys rev & neg: except as marked. Physical Exam Vital Signs Vital Signs Date Time Temp Pulse Resp B/P Pulse Ox O2 Delivery O2 Flow Rate FiO2 10/29/16 02:05 103 24 123/68 98 Room Air 10/28/16 21:17 36.7 110 16 136/90 98 Room Air Initial VS: Reviewed General/Constitutional: Well-developed, Well-nourished Head / Eyes: Atraumatic, Normocephalic, PERRL ENT: Mucous membranes moist, Conjunctiva normal, No scleral icterus Respiratory: Breath sounds normal, Clear to auscultation, No respiratory distress Cardiovascular: Regular rate & rhythm, Heart sounds normal, Intact distal pulses Abdomen / GI: Soft, Non-tender, No guarding, No rebound, No distention Skin: Warm, Dry, No cyanosis Neurologic: Alert, Oriented, Nonfocal Interpretation & Diagnostics Lab Results Interpretation Result Diagram: 10/29/16 0040 10/29/16 0040 Test 10/29/16 00:40 White Blood Count 8.5th/mm3 (3.8-10.1) Red Blood Count 5.14mil/mm3 (3.90-5.20) Hemoglobin 14.9g/dL (12.0-15.6) Hematocrit 44.1% (35.0-46.0) Mean Corpuscular Volume 85.8fL (81-100) Mean Corpuscular Hemoglobin 29.0pg (27.0-35.0) Mean Corpuscular Hemoglobin Concent 33.8% (32.0-37.0) Red Cell Distribution Width 12.4% (12.3-15.4) Platelet Count 315bil/L (150-400) Neutrophils (%) (Auto) 63.5% (40-74) Lymphocytes (%) (Auto) 27.7% (14-46) Monocytes (%) (Auto) 7.4% (4-12) Eosinophils (%) (Auto) 0.6% (0-5) Basophils (%) (Auto) 0.7% (0-3) Erythrocyte Sedimentation Rate 18mm/hr (0-32) Prothrombin Time 9.6sec (8.1-12.5) Prothromb Time International Ratio 0.90ratio Activated Partial Thromboplast Time 28.4sec (22.8-33.0) D-Dimer < 0.50mg/L FEU (<0.50) Sodium Level 143mEq/L (134-144) Potassium Level 3.8mEq/L (3.5-5.2) Chloride Level 104mEq/L (97-108) Carbon Dioxide Level 21mmol/L (18-29) Blood Urea Nitrogen 12mg/dL (6-20) Creatinine 0.66mg/dL (0.57-1.00) Estimat Glomerular Filtration Rate 162mL/min (>59) Glucose Level 101mg/dL (60-99) Uric Acid 5.5mg/dL (2.6-7.2) Calcium Level 10.0mg/dL (8.5-10.1) Magnesium Level 2.1mg/dL (1.6-2.6) Total Bilirubin 0.2mg/dL (0.0-1.2) Aspartate Amino Transf (AST/SGOT) 26U/L (0-50) Alanine Aminotransferase (ALT/SGPT) 45U/L (0-32) Alkaline Phosphatase 110U/L (25-150) Total Creatine Kinase 151U/L (21-215) Creatine Kinase MB 1.0ng/mL (0.0-5.3) Creatine Kinase MB % % (0.0-5.0) Troponin T 0.010ug/L (0.0-0.011) C-Reactive Protein 0.5mg/dL (0.0-0.5) Pro-B-Type Natriuretic Peptide < 5pg/mL (0-130) Total Protein 8.7g/dL (6.4-8.4) Albumin 5.1g/dL (3.4-5.0) Thyroid Stimulating Hormone (TSH) 1.880uIU/mL (0.450-4.500) Free Thyroxine 1.37ng/dL (0.82-1.77) Hold Estrada Top Tube Received (Received) ECG Interpretation ECG Interpretation: SR - 98 No acute changes noted Time: 00:18 Interpreted by: ED physician X-Ray Chest Interpretation Chest Xray Interpretation: No acute findings View: Portable Interpretation / Wet Read by: Wet read ED physician Re-Eval/Medical Decision Med Decision/Clinical Course 21-year-old female presents with sharp intermittent anterior chest pains that are clearly noncardiac in origin and probably related to her chest wall. There is no particular evidence of pericarditis or myocarditis encircling or evidence of coronary disease. She is fairly anxious about the previous evaluation, which revealed only a mildly elevated ESR and no other significant findings. She was reassured site that there were no significant findings, including a negative d-dimer and benign evaluation otherwise. She is discharged in stable condition with instructions for nonsteroidals, Pepcid while on nonsteroidals, and plan for follow-up with PCP. Source of Hx: Old records Time of Eval: 01:44 Re-Evaluation/Progress Note: Pt is rechecked and informed of her labs and imaging results and the plan to discharge her at this time. She understands and agrees, all questions are addressed. Counseled Regarding: Diagnosis, Lab results, When/why to return to ED Discharge & Departure Shift Change Sign-Out Response to Therapy: Improved Primary Impression: Non-cardiac chest pain Additional Impression: Anxiety Disposition: Home Discharge Condition All VS Reviewed: Yes Condition: Stable Patient Instructions: Noncardiac Chest Pain (ED) Additional Instructions: There is no evidence of cardiac issues to cause your pain. Your cardiogram is unchanged. Your heart enzyme tests are both negative. A review of your previous evaluation shows a fairly nonsignificant elevation of your inflammatory screen, which is entirely nonspecific, and does not point to cardiac inflammation at all. Your heart size is normal on the x-ray. There is no evidence of clot in your blood vessels. We have no evidence at this point of a dangerous or progressive process causing your pain. The fairly short timeframe, sharp character, and location, all point to a problem in the chest wall, such as pain in a rib joint, or in the muscles and bones associated. Begin Naprosyn twice daily. You may use Zofran up to four times daily if needed for nausea. Begin Pepcid twice daily as long as you are on Naprosyn. Follow-up with your doctor in the office. Return if any difficulties with breathing, or other new complaints. Referrals: Felicity Plasencia ND (PCP) Scribe Attestation Portions of this note were transcribed by Mellissa Méndez. I, Dr. Gambino personally performed the history, physical exam and medical decision-making; I reviewed and confirmed the accuracy of the information in the transcribed note. Signed by: Inés Miranda, 10/28/2016 01:45 copies to: Felicity Plasencia ND, Christopher W MD October 28, 2016 23:39 MICHAEL MÉNDEZ October 28, 2016 23:46
[2016-10-29 01:02] LABS: MONOCYTES % (AUTO) 7.4 % (4-12); Mean Corpuscular Volume 85.8 fL (81-100); NEUTROPHILS % (AUTO) 63.5 % (40-74); Platelet Count 315 bil/L (150-400)
[2016-10-29 01:03] LABS: BASOPHILS % (AUTO) 0.7 % (0-3); EOSINOPHILS % (AUTO) 0.6 % (0-5)
[2016-10-29 01:20] LABS: D-Dimer < 0.50 mg/L FEU (<0.50)
[2016-10-29 01:31] LABS: ERYTHROCYTE SEDIMENTATION RATE 18 mm/hr (0-32)
[2016-10-29 01:36] LABS: Creatine Kinase 151 U/L (21-215); Magnesium 2.1 mg/dL (1.6-2.6)
[2016-10-29] MEDS ORDERED: ONDA8TAB10 PO (01:40)
[2016-10-29] MEDS ORDERED: NAPR500T PO (01:40)
[2016-10-29] MEDS ORDERED: FAMO20T PO (01:40)
[2016-10-29 02:05] VITALS: BP 123/68; PULSE 103; RESP 24; O2SAT 98
--- NOTE | 2016-10-29 09:11 | DRSVH ---
PROCEDURE: X-RAY CHEST, TWO VIEWS ([id number]) INDICATIONS: chest pain TECHNIQUE: 2 views of the chest were acquired. COMPARISON: [facility], CR, XR CHEST 1VW (PORTABLE), 07/09/2016, 2:48. [facility], CR, XR CHEST 1VW (PORTABLE), 04/18/2016, 0:57. [facility], CR, XR CHEST 1VW (PORT ABLE), 08/15/2015, 2:04. [facility], CR, XR CHEST 1VW (PORTABLE), 10/24/2016, 2:55. FINDINGS: Surgical changes and devices: None. Lungs and pleura: No pleural effusions or pneumothorax. Lungs are clear. Mediastinum: Mediastinal contours are normal. Heart size is normal. Bones and chest wall: No suspicious bony abnormalities. Soft tissues appear unremarkable. IMPRESSION: No acute cardiopulmonary disease process. Dictated by: Lora Nicole MD, PhD on 10/29/2016 at 9:09 Approved by: Lora Nicole MD, PhD on 10/29/2016 at 9:10
== END 2016-10-29 02:06 | disposition home or self-care (01) ==
LOC: SED 21:14
DX: R07.89 Other chest pain (principal); F41.9 Anxiety disorder, unspecified; Z88.0 Allergy status to penicillin
CPT/HCPCS: 36415; 71020; 80053; 82550; 82553; 83735; 83880; 84439; 84443; 84484; 84550; 85025; 85378; 85610; 85651; 85730; 86140; 93005; 96374; 99285; J1885